=== PATIENT | female | born 1995 | race Hispanic/Latino ===

== ENCOUNTER 2019-07-30 23:05 | Emergency (ER) | payer OTHER ==
[2019-07-30 23:34] LABS: APPEARANCE,URINE Cloudy (CLEAR); BILIRUBIN,URINE Negative (NEGATIVE); COLOR,URINE Yellow (YELLOW); GLUCOSE, URINE (UA) Negative (NEGATIVE); KETONES,URINE Trace mg/dL (NEGATIVE); LEUKOCYTE ESTERASE ,URINE Negative (NEGATIVE); NITRATE,URINE Negative (NEGATIVE); OCCULT BLOOD,URINE Negative (NEGATIVE); PROTEIN,URINE Negative (NEGATIVE)
[2019-07-30 23:36] LABS: HCG,QUAL RESULT NEGATIVE (NEGATIVE)
[2019-07-30 23:39] LABS: RAPID GROUP A STREP NEGATIVE (NEGATIVE)
[2019-07-30 23:53] LABS: AMORPHOUS SEDIMENT,UR Moderate /LPF (None Seen); BACTERIA,URINE Few /HPF (None Seen); FINE GRANULAR CASTS,URINE 0-2 /LPF (None Seen); MUCUS,URINE Moderate LPF (None Seen); RBC,URINE 0-1 /HPF (0-1); WBC,URINE 0-1 /HPF (0-1)
[2019-07-30] MEDS ORDERED: IBUPROFEN 800 MG TAB ONE (23:59)
== END 2019-07-31 00:21 | disposition home or self-care (01) ==
LOC: EDH 23:05
DX: J09.X2 Influenza due to identified novel influenza A virus with other respiratory manifestations (principal); J45.909 Unspecified asthma, uncomplicated
CPT/HCPCS: 71046; 81001; 81025; 87804; 87880

== ENCOUNTER 2023-05-17 10:35 | Emergency (ER) | payer BC, OTHER ==
[~2023-05-17] VITALS: Ht 170.2 cm; Wt 99.8 kg
[2023-05-17] MEDS ORDERED: IBUP-2077 PO (10:59)
[2023-05-17] MEDS ORDERED: AMOX1TAB16 PO (10:59)
[2023-05-17] MEDS ORDERED: KETOROLAC 60 MG VIAL (30MG/ML) IM ONE (11:00)
[2023-05-17] MEDS ORDERED: AMOX/CLAV 875/125MG TAB PO ONE (11:00)
[2023-05-17 11:06] VITALS: BP 128/64; PULSE 78; RESP 18; O2SAT 99
== END 2023-05-17 11:18 | disposition home or self-care (01) ==
LOC: EDH 10:35
DX: K02.9 Dental caries, unspecified (principal); K08.89 Other specified disorders of teeth and supporting structures
CPT/HCPCS: 99284; 96372; J1885